=== PATIENT | female | born 1990 | race Caucasian/White ===

== ENCOUNTER 2020-03-23 22:56 | Emergency (ER) | payer SELFPAY ==
[2020-03-23 23:05] VITALS: BP 160/72; PULSE 78; RESP 18; TEMP 35.9; O2SAT 98; BMI 34.4
--- NOTE | 2020-03-23 23:10 | ED_ITS ---
HPI - Back Pain/Injury General: Chief Complaint: Back Pain/Injury Stated Complaint: back pain Time Seen by Provider: 03/23/20 23:04 History of Present Illness: HPI Narrative: Patient is a 29-year-old female who comes to the ED with back pain. Patient says lower back pain started about a month ago. She says that she has had to take care of her mother which involves a lot of lifting and transferring her mother since she cannot do those things on her own. Since taking care of her mom, her back pain started. Back pain is in the lower back. It has progressed and gotten more painful over the last month. Patient says that in the last 2 days she started getting pain and tingling sensation shooting down her right leg during certain movements and positions. She rates the pain currently an 8 out of 10. Patient denies any bladder or bowel incontinence, pelvic anesthesia. Associated symptoms: Deny abdominal pain, chills, dysuria, fatigue, fever(s), hematuria, nausea or vomiting Review of Systems Const: Denies: fever, chills or fatigue Eyes: Denies: change in vision or eye discomfort ENMT: Denies: throat pain, painful swallowing, nasal discharge or nasal congestion Card: Denies: chest pain, palpitations, edema, swelling of feet/ankles, shortness of breath on exertion or shortness of breath when lying down Resp: Denies: shortness of breath, productive cough or non-productive cough GI: Denies: abdominal pain, nausea, vomiting, diarrhea, constipation or blood in stool : Denies: flank pain, painful urination or blood in urine Musc: Reports: back pain; Denies: neck pain or extremity swelling Skin/Breast: Denies: rash or new lesion Neuro: Denies: headache, numbness in extremities or weakness in extremities PFS ED PFSH: Social History Smoking and tobacco status: never smoked Physical Exam Const: COMMON NORMALS: oriented x3 and alert GENERAL APPEARANCE: not comfortable (uncomfortable due to lower back pain.) HENMT: COMMON NORMALS: normocephalic HEAD & SCALP: normocephalic MOUTH: oral and palatal mucosa normal THROAT: posterior oropharynx normal and uvula midline Eye: COMMON NORMALS: PERRL PUPIL: Yes PERRL Neck/C-Spine: COMMON NORMALS: supple GENERAL: Yes normal visual inspection Resp: COMMON NORMALS: normal respiratory effort, no retractions, no use of accessory muscles and clear to auscultation bilaterally AUSCULTATION: clear to auscultation bilaterally Cardio: COMMON NORMALS: regular rate, regular rhythm, S1 normal heart sound, S2 normal heart sound, no gallops, no clicks, no murmurs and peripheral pulses 2+ throughout RATE: regular rate RHYTHM: regular rhythm HEART SOUNDS: S1 normal and S2 normal PERIPHERAL PULSES: pulses 2+ throughout GI: COMMON NORMALS: normal to inspection, nondistended, normoactive bowel sounds, soft to palpation, non-tender and no masses PALPATION: Yes soft : COMMON NORMALS: Yes no CVA tenderness BLADDER/KIDNEY EXAM: Yes no CVA tenderness Back/Pelvis: COMMON NORMALS: no CVA tenderness LUMBAR SPINE/LOWER BACK: Yes pain with ROM and Yes paraspinal muscle tenderness Extremity: COMMON NORMALS: normal to inspection and no pedal edema Neuro: COMMON NORMALS: oriented x3 and moves all extremities SENS ORIUM/ORIENTATION: Yes alert Skin: COMMON NORMALS: no rashes or lesions noted GENERAL SKIN EXAM: no rashes or lesions noted and dry skin Course Vital Signs: Vital signs: Vital Signs Temperature 96.6 F L 03/23/20 23:05 Pulse Rate 66 03/24/20 01:12 Respiratory Rate 18 03/24/20 01:12 Blood Pressure 97/71 03/24/20 01:12 Pulse Oximetry 98 03/24/20 01:12 MDM - Back Pain/Injury MDM Narrative: Medical decision making narrative: Patient is a 29-year-old female who comes to the ED with lower back pain and pain and tingling that radiates down right leg. Patient is recently been taking care of her mother which includes a lot of lifting. She says back pain started when she started taking care of her mother. Physical exam showed lower back tenderness and patient had pain radiating down right leg. While here in the ED patient was given Toradol, Norflex and prednisone. Patient was diagnosed with lumbar radiculopathy and given a prescription for muscle relaxer and prednisone. Patient told to follow-up with primary care physician in the next 5 to 7 days reevaluation. Patient understood and agreed with plan. Discharge Plan Discharge Patient Disposition: Home, Self-Care Clinical Impression: Lumbar radiculopathy Strain of lumbar region Qualifiers: Encounter type: initial encounter Qualified Code(s): S39.012A - Strain of muscle, fascia and tendon of lower back, initial encounter Condition: Stable Prescriptions: New Robaxin-750 750 mg tablet 750 mg PO Q8H Qty: 20 RF: 0 prednisone 20 mg tablet 20 mg PO TID 5 Days Qty: 15 RF: 0 No Action gabapentin 300 mg Capsule 300 mg PO TID RF: 0 albuterol sulfate 90 mcg/actuation Hfa Aerosol Inhaler 2 puff INHALATION DIRECTED RF: 0 Discharge Orders: Discharge Order (Routine); Ordered 03/24/20 Ordered By: James Murphy Discharge Diet: Regular Discharge Activity: Increase activity as tolerated Patient Instructions: Low Back Strain (ED), Lumbar Radiculopathy (ED) Activity Restrictions/Additional Instructions: Follow-up with your PCP within the next 7 to 10 days for reevaluation. Take full course of prednisone as prescribed. Take [id number] ibuprofen to help with pain and inflammation. I am also sending you home with a prescription for a muscle relaxer. Muscle relaxer can cause drowsiness so take at night before bed and use with caution during the day. Rest for the next 5 days and avoid any heavy lifting. Discharge Date/Time: 03/24/20 01:13 Coding Level of Care Code ED [employer] for Jamel Lynch Exam Comprehensive
[2020-03-24] MEDS: predniSONE 20 mg Tablet 60 MG PO (00:13)
[2020-03-24] MEDS: ketorolac 30 mg/mL INJ IM (00:14)
[2020-03-24] MEDS: orphenadrine 30 mg/mL Inj 2 mL 60 MG IM (00:14)
[2020-03-24] MEDS: HYDROcodone-acetaminophen 7.5-325 mg Tablet 1 TAB PO (01:01)
[2020-03-24 01:12] VITALS: BP 97/71; PULSE 66; RESP 18; O2SAT 98
== END 2020-03-24 01:13 | disposition home or self-care (01) ==
LOC: ER 03-24 00:20
PROVIDERS: Emergency Provider Physician Assistant
DX: M54.16 Radiculopathy, lumbar region (principal); S39.012A Strain of muscle, fascia and tendon of lower back, initial encounter; X50.9XXA Other and unspecified overexertion or strenuous movements or postures, initial encounter; Y93.F2 Activity, caregiving, lifting
CPT/HCPCS: 12345; 96372; 99281; 99283; J1885; J2360; J7512

== ENCOUNTER 2022-10-28 20:13 | Emergency (ER) | payer MEDICAID, SELFPAY ==
[2022-10-28 20:31] VITALS: BP 138/88; PULSE 79; RESP 16; TEMP 36.8; O2SAT 97; BMI 28.1
[2022-10-28 21:01] LABS: Urine Appearance Cloudy (CLEAR); Urine Color Yellow (Yellow)
[2022-10-28 21:02] LABS: Add Urine Culture? Yes; Add Urine Microscopic? YES; Bacteria Urine 3+ /hpf; Bilirubin Urine Neg (Negative); Blood Urine 3+ (Negative); Glucose Urine UA Norm (Normal); Ketones Urine Negative (Negative); Leukocyte Esterase Urine 2+ (Negative); Mucus Urine 1+ /hpf; Nitrate Urine Negative (Negative); Protein Urine 1+ (Negative); RBC Urine TOO NUMEROUS TO CNT /hpf (0-2); Urobilinogen Urine Norm (Negative); WBC Urine 80-100 /hpf (0-5); pH Urine 5 (5-7)
--- NOTE | 2022-10-28 21:05 | CTR_ITS ---
PROCEDURE INFORMATION: Exam: CT Abdomen And Pelvis Without Contrast Exam date and time: 10/28/2022 9:13 PM Age: 32 years old Clinical indication: Abdominal pain; Other: Cramping; Prior surgery; Surgery type: Gb. Appy. Hysterectomy. Patient HX: PT C/O RT flank pain and hematuria. ; Additional info: Right flank pain, TECHNIQUE: Imaging protocol: Computed tomography of the abdomen and pelvis without contrast. Axial, coronal and sagittal reformatted images were created and reviewed. Radiation optimization: All CT scans at this facility use at least one of these dose optimization techniques: automated exposure control; mA and/or kV adjustment per patient size (includes targeted exams where dose is matched to clinical indication); or iterative reconstruction. COMPARISON: No relevant prior studies available. RADIATION DOSE METRICS: Total DLP (mGy-cm): 700.89 FINDINGS: Lungs: Left lower lobe calcified granuloma. Liver: Unremarkable. Gallbladder and bile ducts: Status post cholecystectomy. No biliary ductal dilatation. Pancreas: Unremarkable. Spleen: Unremarkable. Adrenal glands: Normal. No mass. Kidneys and ureters: No mass. No radiodense calculi. No hydronephrosis. Stomach and bowel: No bowel wall thickening. No obstruction. No pneumatosis. Appendix: Status post appendectomy. Intraperitoneal space: No free fluid. No organized fluid collection. No free air. Vasculature: Unremarkable. No aneurysm. Lymph nodes: No pathologically enlarged lymph nodes. Urinary bladder: Unremarkable as visualized. Reproductive: Status post hysterectomy. Bones/joints: No acute osseous abnormality. Mild degenerative changes. Soft tissues: Unremarkable. CT/CT kidney stone [id number] IMPRESSION: 1. Limited noncontrast examination without CT evidence of acute intra-abdominal or pelvic pathology. 2. Additional findings, as above.
--- NOTE | 2022-10-28 21:07 | ED_ITS ---
HPI - Female Genitourinary General: Chief complaint: Urogenital-Female Stated complaint: cramps blood loss Time Seen by Provider: 10/28/22 21:05 History of Present Illness: 32-year-old female comes in today with complaints of right flank pain radiating to the inguinal area. Patient reports history of hysterectomy and gallbladder removal. Patient appears in moderate pain but nontoxic. Patient reports some nausea but no vomiting. Patient reports blood in the urine. Associated symptoms: Reports abdominal pain Review of Systems Const: Denies: fever(s) GI: Reports: abdominal pain : Reports: flank pain PFSH ED PFSH: Social History Smoking and tobacco status: never smoked Physical Exam Const: COMMON NORMALS: alert HENMT: COMMON NORMALS: normocephalic HEAD & SCALP: normocephalic Neck/C-Spine: COMMON NORMALS: full ROM Resp: COMMON NORMALS: normal respiratory effort Cardio: COMMON NORMALS: regular rate and regular rhythm RATE: regular rate RHYTHM: regular rhythm GI: COMMON NORMALS: Soft to palpation AUSCULTATION: Yes normoactive bowel sounds PALPATION: Yes Soft to palpation and Yes Tenderness to palpation p resent (GI) Details: RLQ Extremity: COMMON NORMALS: no pedal edema Neuro: SENSORIUM/ORIENTATION: Yes alert Skin: COMMON NORMALS: turgor normal GENERAL SKIN EXAM: turgor normal Course Vital Signs: Vital signs: Vital Signs Temperature 98.3 F 10/28/22 20:31 Pulse Rate 79 10/28/22 20:31 Respiratory Rate 16 10/28/22 20:31 Blood Pressure 138/88 10/28/22 20:31 Pulse Oximetry 97 10/28/22 20:31 Oxygen Delivery Me thod 10/28/22 20:31 MDM - Female Medical Decision Making 32-year-old female comes in today with complaints of right flank pain radiating into the right inguinal area. Patient thinks that she may have a kidney stone. Patient has a history of hysterectomy and gallbladder removal. On exam abdomen soft with some right lower quadrant abdominal pain. Vital signs are normal. Differential diagnosis includes renal calculi, appendicitis, surgical adhesions. CT noted no signs of of renal calculi or other acute surgical abdomen. Urinalysis had a large amount of red blood cells and white blood cells. Believe patient probably has urinary tract infection with a mild pyelonephritis. Patient was given a gram Rocephin and medication for pain. Patient was recommended to continue antibiotics by mouth follow-up with primary care in 3 to 5 days return to ER for worsening symptoms. Patient reported understanding. Lab Data 10/28/22 21:04 10/28/22 21:04 Radiology Impressions Abdomen/Pelvis CT 10/28/22 21:05 IMPRESSION: 1. Limited noncontrast examination without CT evidence of acute intra-abdominal or pelvic pathology. 2. Additional findings, as above. Laboratory Results WBC 8.3 10^3/uL (4.0-10.0) 10/28/22 21: RBC 4.57 10^6/uL (4.1-5.3) 10/28/22 21:04 Hgb 14.3 g/dL (11.5-15.3) 10/28/22 21: Hct 42.6 % (37.0-47.0) 10/28/22 21: MCV 93.2 fl (81-99) 10/28/22 21:04 MCH 31.3 pg (28.0-34.0) 10/28/22 21:04 MCHC 33.6 g/dL (30.0-36.0) 10/28/22 21:04 RDW 12.9 % (12.1-15.1) 10/28/22 21:04 Plt Count 230 10^3/cmm (130-400) 10/28/22 21:04 MPV 11.2 fL (7.4-10.4) H 10/28/22 21:04 Neut % (Auto) 69.8 % 10/28/22 21:04 Lymph % (Auto) 21.8 % 10/28/22 21:04 [place] % (Auto) 7.4 % 10/28/22 21: Eos % (Auto) 0.2 % 10/28/22 21: Baso % (Auto) 0.6 % 10/28/22 21:04 Neut # (Auto) 5.75 10^3/uL (1.8-7.7) 10/28/22 21: Lymph # (Auto) 1.8 10^3/uL (0.8-4.8) 10/28/22 21:04 [place] # (Auto) 0.6 10^3/uL (0.2-0.9) 10/28/22 21:04 Eos # (Auto) 0.0 10^3/uL (0.0-0.8) 10/28/22 21:04 Baso # (Auto) 0.1 10^3/uL (0.0-0.1) 10/28/22 21:04 Nucleated RBC % (auto) 0 % 10/28/22 21:04 Nucleated RBCs # 0.0 /100WBC 10/28/22 21:04 Sodium 139 mmol/L (136-145) 10/28/22 21:04 Potassium 3.9 mmol/L (3.5-5.1) 10/28/22 21:04 Chloride 105 mmol/L (98-107) 10/28/22 21:04 Carbon Dioxide 24 mmol/L (22-29) 10/28/22 21:04 Anion Gap 13.9 (5-19) 10/28/22 21:04 BUN 15 mg/dL (6-20) 10/28/22 21:04 Creatinine 0.6 mg/dL (0.5-0.9) 10/28/22 21:04 GFR Calculation 115.9 mL/min (90-130) 10/28/22 21:04 Glucose 98 mg/dL (65-115) 10/28/22 21:04 Calculated Osmolality 289 mOsm/kg (285-295) 10/28/22 21:04 Calcium 9.5 mg/dL (8.5-10.5) 10/28/22 21:04 Total Bilirubin 0.2 mg/dL (0.15-1.2) 10/28/22 21:04 AST 13 U/L (0-32) 10/28/22 21:04 ALT 7 U/L (0-33) 10/28/22 21:04 Alkaline Phosphatase 56 U/L (35-105) 10/28/22 21:04 Total Protein 7.5 g/dL (6.6-8.7) 10/28/22 21:04 Albumin 4.4 g/dL (3.5-5.2) 10/28/22 21:04 Globulin 3.1 g/dL (1.3-4.6) 10/28/22 21:04 Lipase 44 U/L (13-60) 10/28/22 21:04 Ser , Semi-Qnt 1.00 mIU/mL 10/28/22 21:04 Urine Color Yellow (Yellow) 10/28/22 20:38 Urine Appearance Cloudy (CLEAR) A 10/28/22 20:38 Urine pH 5 (5-7) 10/28/22 20:38 Ur Specific [place] 1.030 (1.005-1.030) 10/28/22 20:38 Urine Protein 1+ (Negative) H 10/28/22 20:38 Urine Glucose (UA) Norm (Normal) 10/28/22 20:38 Urine Ketones Negative (Negative) 10/28/22 20:38 Urine Blood 3+ (Negative) H 10/28/22 20:38 Urine Nitrate Negative (Negative) 10/28/22 20:38 Urine Bilirubin Neg (Negative) 10/28/22 20:38 Urine Urobilinogen Norm mg/dL (Negative) 10/28/22 20:38 Ur Leukocyte Esterase 2+ (Negative) H 10/28/22 20:38 Urine RBC Too numerous to cnt /hpf (0-2) H 10/28/22 20:38 Urine WBC 80-100 /hpf (0-5) H 10/28/22 20:38 Ur Squamous Epith Cells 5-10 /hpf (0-5) H 10/28/22 20:38 Amorphous Sediment Not Reportable 10/28/22 20:38 Urine Bacteria 3+ /hpf (NONE) H 10/28/22 20:38 Urine Mucus 1+ /hpf 10/28/22 20:38 Discharge Plan Discharge Patient Disposition: Home Clinical Impression: Pyelonephritis Condition: Stable Prescriptions: New cefdinir 300 mg capsule 300 mg PO BID 7 Days Qty: 14 0RF hydrocodone-acetaminophen 5-325 mg tablet 1 tab PO Q8H PRN (Reason: pain) Qty: 7 0RF No Action gabapentin 300 mg Capsule 300 mg PO TID albuterol sulfate 90 mcg/actuation Hfa Aerosol Inhaler 2 puff INHALATION DIRECTED Robaxin-750 750 mg tablet 750 mg PO Q8H Qty: 20 0RF Discharge Orders: Discharge ED (Routine); Ordered 10/28/22 Ordered By: Caden Campbell Discharge Diet: Usual diet Discharge Activity: Increase activity as tolerated Patient Instructions: Kidney Infection (ED), Opioid Safety Activity Restrictions/Additional Instructions: Drink plenty of fluids. Take antibiotics as directed. Use acetaminophen and ibuprofen to control pain. Use hydrocodone for severe pain. Follow-up with primary care as needed. Return to emergency department for worsening symptoms such as inability to hold fluids down, fever greater than 100.4, or new concerns. Coding Level of Care Code ED [employer] for Jamel Fwd Exam Comprehensive
[2022-10-28] MEDS: cefTRIAXone 1,000 MG in sodium chloride 0.9% (plus) 50 ML 100 MG IV (21:16)
[2022-10-28] MEDS: sodium chloride 0.9% 500 ML 999 ML IV (21:16)
[2022-10-28] MEDS: ondansetron 2 mg/ML SDV 2 mL 4 MG IVP (21:16)
[2022-10-28] MEDS: ketorolac 30 mg/mL INJ 15 MG IVP (21:16)
[2022-10-28 21:23] LABS: Basophils # 0.1 10^3/uL (0.0-0.1); Basophils % 0.6 %; Eosinophils % 0.2 %; Hematocrit 42.6 % (37.0-47.0); Hemoglobin 14.3 g/dL (11.5-15.3); Lymphocytes # 1.8 10^3/uL (0.8-4.8); Lymphocytes % 21.8 %; Mean Corpuscular HGB Conc 33.6 g/dL (30.0-36.0); Mean Corpuscular Hemoglobin 31.3 pg (28.0-34.0); Mean Corpuscular Volume 93.2 fl (81-99); Mean Platelet Volume 11.2 fL (7.4-10.4); Monocytes # 0.6 10^3/uL (0.2-0.9); Monocytes % 7.4 %; Neutrophils # 5.75 10^3/uL (1.8-7.7); Neutrophils % 69.8 %; Nucleated Red Blood Cells % 0 %; Platelet Count 230 10^3/cmm (130-400); Red Blood Count 4.57 10^6/uL (4.1-5.3); Red Cell Distribution Width 12.9 % (12.1-15.1); White Blood Count 8.3 10^3/uL (4.0-10.0)
[2022-10-28 21:54] LABS: Alanine Aminotransferase 7 U/L (0-33); Albumin Level 4.4 g/dL (3.5-5.2); Alkaline Phosphatase 56 U/L (35-105); Anion Gap 13.9 (5-19); Aspartate Amino Transferase 13 U/L (0-32); Blood Urea Nitrogen 15 mg/dL (6-20); Calcium 9.5 mg/dL (8.5-10.5); Carbon Dioxide 24 mmol/L (22-29); Chloride 105 mmol/L (98-107); Globulin 3.1 g/dL (1.3-4.6); Glomerular Filtration Rate 115.9 mL/min (90-130); Glucose 98 mg/dL (65-115); Lipase 44 U/L (13-60); Osmolality Calculated 289 mOsm/kg (285-295); Potassium 3.9 mmol/L (3.5-5.1); Sodium 139 mmol/L (136-145); Total Bilirubin 0.2 mg/dL (0.15-1.2); Total Protein 7.5 g/dL (6.6-8.7)
[2022-10-28] MEDS: morphine 4 mg/mL SDV 1 mL IVP (22:14)
[2022-10-28 22:19] VITALS: PULSE 83; RESP 18; O2SAT 98
== END 2022-10-28 22:20 | disposition home or self-care (01) ==
PROVIDERS: Emergency Medicine; Emergency Provider Nurse Practitioner Family
DX: N12 Tubulo-interstitial nephritis, not specified as acute or chronic (principal)
CPT/HCPCS: 74176; 80053; 81001; 83690; 84702; 85025; 87086; 96365; 96375; 99285; J0696; J1885; J2270; J2405; J7040

== ENCOUNTER 2022-11-19 21:03 | Emergency (ER) | payer MEDICAID, SELFPAY ==
[2022-11-19 21:08] VITALS: BP 107/64; PULSE 76; RESP 18; TEMP 36.8; O2SAT 99; BMI 29.0
--- NOTE | 2022-11-19 21:57 | XRR_ITS ---
PROCEDURE INFORMATION: Exam: XR Right Ankle Exam date and time: 11/19/2022 10:00 PM Age: 32 years old Clinical indication: Injury or trauma; Fall; Blunt trauma; Right; Patient HX: Patient was outside with dog and a cable lead and the cable became wrapped around ankle and she was pulled to the ground. C/O pain to ankle primarily to achilles. TECHNIQUE: Imaging protocol: Radiologic exam of the Right ankle. Views: 3 or more views. COMPARISON: No relevant prior studies available. FINDINGS: Bones/joints: No acute fracture or dislocation is noted. The skeletal structures seem age-appropriate. Small posterior calcaneal enthesophyte. Soft tissues: Unremarkable. XR/XR ankle RT min 3V* [id number] IMPRESSION: No acute findings.
--- NOTE | 2022-11-19 22:16 | W.ED.EXTPRO ---
HPI - Extremity Problem General: Chief complaint: Extremity Injury, Lower Stated complaint: right ankle pain Time Seen by Provider: 11/19/22 21:55 History of Present Illness: Patient comes in with right ankle pain. States that her dog's chain got wrapped around her right ankle while she was walking him and he took off dragging her. States that she is having pain over the anterior aspect of the right ankle as well as over the Achilles tendon. Associated symptoms: Deny chest pain, fever(s) or rash Review of Systems Const: Denies: fever(s) or body aches Eyes: Denies: change in vision or blurry vision ENMT: Denies: throat pain or odynophagia Card: Denies: chest pain or palpitations Resp: Denies: dyspnea or productive cough GI: Denies: abdominal pain, nausea or vomiting : Denies: flank pain or dysuria Musc: Denies: neck pain or back pain Skin/Breast: Denies: rash or pruritus Neuro: Denies: headache(s) or numbness in extremities Psych: Denies: anxiety or change in appetite Endo: Denies: polyuria or excessive sweating PFSH ED PFSH: Social History Smoking and tobacco status: never smoked Physical Exam Const: COMMON NORMALS: no acute distress, patient oriented x3, healthy appearing and alert HENMT: COMMON NORMALS: normocephalic and atraumatic HEAD & SCALP: normocephalic and atraumatic Eye: COMMON NORMALS: Equal, round and reactive pupils present and EOMs intact bilaterally PUPIL: Yes Equal, round and reactive pupils present Neck/C-Spine: COMMON NORMALS: full ROM and supple Resp: COMMON NORMALS: normal respiratory effort, No retractions and No use of accessory muscles Cardio: COMMON NORMALS: regular rate and regular rhythm RATE: regular rate RHYTHM: regular rhythm GI: COMMON NORMALS: Normal to inspection, nondistended, normoactive bowel sounds present, Soft to palpation and non-tender PALPATION: Yes Soft to palpation Back/Pelvis: COMMON NORMALS: thoracic and lumbar spine normal to inspection and no thoracic nor lumbar tenderness Extremity: OTHER: full range of motion of her right foot and ankle. She does have some swelling over the posterior aspect of the ankle as well as tenderness over the anterior talofibular ligament. Neuro: COMMON NORMALS: patient oriented x3 SENSORIUM/ORIENTATION: Yes alert Psych: COMMON NORMALS: mental status grossly normal and cooperative Skin: COMMON NORMALS: no rashes or lesions noted and no wounds GENERAL SKIN EXAM: no rashes or lesions noted Course Vital Signs: Vital signs: Vital Signs Temperature 98.2 F 11/19/22 21:08 Pulse Rate 76 11/19/22 21:08 Respiratory Rate 18 11/19/22 21:08 Blood Pressure 107/64 11/19/22 21:08 Pulse Oximetry 99 11/19/22 21:08 Oxygen Delivery Me thod 11/19/22 21:08 MDM - Extremity (Nontraumatic) Medical Decision Making Patient comes in with right ankle pain. States that her dog's chain got wrapped around her right ankle while she was walking him and he took off dragging her. States that she is having pain over the anterior aspect of the right ankle as well as over the Achilles tendon. On physical exam she has full range of motion of her foot and ankle. She does have some swelling over the posterior aspect of the ankle as well as tenderness over the anterior talofibular ligament. X-ray done while in the waiting room was unremarkable for acute fracture. Will ice, encourage anti-inflammatories, and discharged with precautions to return for worsening or changing symptoms. Lab Data Radiology Impressions Ankle X-Ray 11/19/22 21:57 IMPRESSION: No acute findings. Discharge Plan Discharge Patient Disposition: Home Clinical Impression: Ankle sprain and strain Condition: Stable Prescriptions: No Action gabapentin 300 mg Capsule 300 mg PO TID albuterol sulfate 90 mcg/actuation Hfa Aerosol Inhaler 2 puff INHALATION DIRECTED Robaxin-750 750 mg tablet 750 mg PO Q8H Qty: 20 0RF hydrocodone-acetaminophen 5-325 mg tablet 1 tab PO Q8H PRN (Reason: pain) Qty: 7 0RF Discharge Orders: Discharge ED (Routine); Ordered 11/19/22 Ordered By: Te Sheridan Patient Instructions: Ankle Sprain (ED) Stand Alone Forms: Work/School Release Coding Level of Care Code ED [employer] Professor for Connieg Fwd Exam Comprehensive
== END 2022-11-19 22:37 | disposition home or self-care (01) ==
PROVIDERS: Emergency Provider Emergency Medicine
DX: S93.401A Sprain of unspecified ligament of right ankle, initial encounter (principal); S96.911A Strain of unspecified muscle and tendon at ankle and foot level, right foot, initial encounter; W01.0XXA Fall on same level from slipping, tripping and stumbling without subsequent striking against object, initial encounter
CPT/HCPCS: 73610; 99283

== ENCOUNTER 2023-01-24 16:18 | Emergency (ER) | payer OTHER, SELFPAY ==
--- NOTE | 2023-01-24 16:19 | XRR_ITS ---
PROCEDURE INFORMATION: Exam: XR Chest Exam date and time: 01/24/2023 4:37 PM Age: 32 years old Clinical indication: Shortness of breath and other: Asthma; Additional info: Asthma, SOB TECHNIQUE: Imaging protocol: Radiologic exam of the chest. Views: 2 views. COMPARISON: CT kidney stone [id number] 10/28/2022 9:13 PM FINDINGS: Lungs: Unremarkable. No consolidation. Pleural spaces: Unremarkable. No pleural effusion. No pneumothorax. Heart/Mediastinum: Unremarkable. No cardiomegaly. Bones/joints: Unremarkable. XR/XR chest 2V* [id number] IMPRESSION: No acute findings.
[2023-01-24 16:32] VITALS: BP 154/91; PULSE 84; RESP 14; TEMP 37.2; O2SAT 99; BMI 28.6
--- NOTE | 2023-01-24 16:41 | ED_ITS ---
Documented by User: Kathy Kumari PA-C 01/24/23 16:49 HPI - SOB/Dyspnea General: Chief Complaint: Shortness of Breath/Dyspnea Stated Complaint: asthma/sob Time Seen by Provider: 01/24/23 16:39 Source: patient Mode of arrival: ambulatory Limitations: no limitations History of Present Illness: HPI Narrative: 2-year-old female presents to the ER today for possible asthma attack. Patient reports for the last 3 days she has had a cough. She reports this morning at [employer] she went into a full-blown asthma attack. Patient reports she tried using her ProAir inhaler however found that it was and it did not seem to work. Patient reports someone else at [employer] had an inhaler that she used and she was able to calm herself down to where she could breathe. Patient reports her cough is productive. She denies any fever or chills. Patient d enies any congestion but reports clear runny nose. Patient reports usually asthma is induced by seasonal allergies. She is not taking any type of daily antihistamine or nasal spray at this time. Patient reports she is currently on a Medrol Dosepak for a back injury. She thought maybe the steroid would help her asthma however it has not. Patient does not use a nebulizer at home. Patient denies any known sick contacts. Review of Systems General: Reports: 10 or more systems reviewed and unremarkable except in HPI and below PFSH ED PFSH: Social History Smoking and tobacco status: never smoked Physical Exam Const: COMMON NORMALS: no acute distress, average body habitus, patient oriented x3, no limitations, healthy appearing, alert and well nourished HENMT: COMMON NORMALS: normocephalic, atraumatic, external ears normal, TM's normal bilaterally, Normal nasal mucous membranes and turbinates present and moist oral mucous membranes HEAD & SCALP: normocephalic and atraumatic NOSE: Normal nasal mucous membranes and turbinates present EXTERNAL EAR: Yes external ears normal TYMPANIC MEMBRANE: TM's normal bilaterally Neck/C-Spine: COMMON NORMALS: full ROM and no lymphadenopathy Resp: COMMON NORMALS: normal respiratory effort and No retractions EFFORT & INSPECTION: Yes able to speak in complete sentences AUSCULTATION: wheezes and other (Decreased air movement left lung worse on the right in the lower lobes.) Cardio: COMMON NORMALS: regular rate, regular rhythm and No murmurs present (Cardio) RATE: regular rate RHYTHM: regular rhythm GI: COMMON NORMALS: Normal to inspection, nondistended, normoactive bowel sounds present, Soft to palpation and non-tender PALPATION: Yes Soft to palpation Extremity: COMMON NORMALS: normal to inspection, full ROM and no pedal edema Neuro: COMMON NORMALS: patient oriented x3 SENSORIUM/ORIENTATION: Yes alert Psych: COMMON NORMALS: mental status grossly normal, Normal thought process present and cooperative THOUGHT PROCESS: Normal thought process present Skin: COMMON NORMALS: no rashes or lesions noted and no wounds GENERAL SKIN EXAM: no rashes or lesions noted Course ED course: Presents to the ER today with an asthma exacerbation. She reports cough x3 days and then an asthma exacerbation that began this morning. She reports the attack lasted several minutes until she was able to find an inhaler from someone at [employer]. She reports she still feels very tight in the chest. Family is concerned that despite being on steroids for another injury, her asthma is still flaring up. Patient is not taking a daily antihistamine at this time. Denies any known sick contacts. We will get a chest x-ray, do an albuterol nebulized treatment and also basic labs. Patient is in no acute distress at this time. Vital Signs: Vital signs: Vital Signs Temperature 99.0 F 01/24/23 16:32 Pulse Rate 84 01/24/23 18:21 Respiratory Rate 18 01/24/23 17:00 Blood Pressure 135/85 01/24/23 18:21 Pulse Oximetry 97 01/24/23 18:21 Oxygen Delivery Me thod 01/24/23 17:00 MDM - SOB/Dyspnea Lab Data 01/24/23 17:04 01/24/23 17:04 Labs/Radiology: Radiology Impressions Chest X-Ray 01/24/23 16:19 IMPRESSION: No acute findings. Laboratory Results WBC 3.2 10^3/uL (4.0-10.0) L 01/24/23 17:04 RBC 4.84 10^6/uL (4.1-5.3) 01/24/23 17:04 Hgb 14.5 g/dL (11.5-15.3) 01/24/23 17:04 Hct 45.3 % (37.0-47.0) 01/24/23 17:04 MCV 93.6 fl (81-99) 01/24/23 17:04 MCH 30.0 pg (28.0-34.0) 01/24/23 17:04 MCHC 32.0 g/dL (30.0-36.0) 01/24/23 17:04 RDW 12.8 % (12.1-15.1) 01/24/23 17:04 Plt Count 184 10^3/cmm (130-400) 01/24/23 17:04 MPV 11.2 fL (7.4-10.4) H 01/24/23 17:04 Neut % (Auto) 64.4 % 01/24/23 17:04 Lymph % (Auto) 29.1 % 01/24/23 17:04 [place] % (Auto) 5.6 % 01/24/23 17:04 Eos % (Auto) 0.3 % 01/24/23 17:04 Baso % (Auto) 0.6 % 01/24/23 17:04 Neut # (Auto) 2.08 10^3/uL (1.8-7.7) 01/24/23 17:04 Lymph # (Auto) 0.9 10^3/uL (0.8-4.8) 01/24/23 17:04 [place] # (Auto) 0.2 10^3/uL (0.2-0.9) 01/24/23 17:04 Eos # (Auto) 0.0 10^3/uL (0.0-0.8) 01/24/23 17:04 Baso # (Auto) 0.0 10^3/uL (0.0-0.1) 01/24/23 17:04 Nucleated RBC % (auto) 0 % 01/24/23 17:04 Nucleated RBCs # 0.0 /100WBC 01/24/23 17:04 Sodium 139 mmol/L (136-145) 01/24/23 17:04 Potassium 3.5 mmol/L (3.5-5.1) 01/24/23 17:04 Chloride 102 mmol/L (98-107) 01/24/23 17:04 Carbon Dioxide 23 mmol/L (22-29) 01/24/23 17:04 Anion Gap 17.5 (5-19) 01/24/23 17:04 BUN 12 mg/dL (6-20) 01/24/23 17:04 Creatinine 0.6 mg/dL (0.5-0.9) 01/24/23 17:04 GFR Calculation 115.9 mL/min (90-130) 01/24/23 17:04 Glucose 99 mg/dL (65-115) 01/24/23 17:04 Calculated Osmolality 288 mOsm/kg (285-295) 01/24/23 17:04 Calcium 8.9 mg/dL (8.5-10.5) 01/24/23 17:04 Critical Care Time Critical Care Time: Critical Care Time: No Discharge Plan Discharge Patient Disposition: Home Clinical Impression: Asthma with exacerbation Qualifiers: Asthma severity: mild Asthma persistence: intermittent Qualified Code(s): J45.21 - Mild intermittent asthma with (acute) exacerbation Condition: Stable Prescriptions: New albuterol sulfate 90 mcg/actuation HFA aerosol inhaler 2 inh inhalation Q6H PRN (Reason: shortness of breath or wheezing) Qty: 8.5 0RF 24Hour Allergy 10 mg tablet 10 mg PO DAILY PRN (Reason: allergy symptoms) Qty: 30 0RF No Action gabapentin 300 mg Capsule 300 mg PO TID albuterol sulfate 90 mcg/actuation Hfa Aerosol Inhaler 2 puff INHALATION DIRECTED Robaxin-750 750 mg tablet 750 mg PO Q8H Qty: 20 0RF hydrocodone-acetaminophen 5-325 mg tablet 1 tab PO Q8H PRN (Reason: pain) Qty: 7 0RF Discharge Orders: Discharge ED (Routine); Ordered 01/24/23 Ordered By: James Murphy Referrals: Fiordaliza Valadez MD [Primary Care Provider] - Discharge Diet: Regular Discharge Activity: Increase activity as tolerated Patient Instructions: Asthma (ED) Activity Restrictions/Additional Instructions: Follow-up with medical provider as directed in the next 5 to 7 days for reevaluation. Take medications as prescribed. Return to the ER or your medical provider if condition worsens. Please read and understand discharge instructions. Thank you for choosing [facility] for your healthcare needs today. Please realize this is an emergency room and that we are providing you with a medical screening exam and this may not be complete and all inclusive of all the testing and or work up that you may need to determine your ailment or severity of your illness. It is very important that you follow up as instructed or that you return to the Emergency Department should you have concerns or if your condition changes or worsens in any way. Sign Out Sign Out Data: Patient Sign Out occurred on 01/24/23 at 17:02. Patient's care was discussed, and care was transferred from Kathy Kumari PA-C to TOOTIE Enciso. Sign Out Comment: Waiting for xray results, labs and nebulizer tx Last updated by Kathy Kumari PA-C at 01/24/23 16:50 Coding Level of Care Code ED Garage Door Opener Installer for Chg Fwd Documented by User: TOOTIE Enciso 01/25/23 00:01 HPI - SOB/Dyspnea General: Chief Complaint: Shortness of Breath/Dyspnea Stated Complaint: asthma/sob Time Seen by Provider: 01/24/23 16:39 History of Present Illness: HPI Narrative: 32-year-old female presents to the ER today for possible asthma attack. Patient reports for the last 3 days she has had a cough. She reports this morning at [employer] she went into a full-blown asthma attack. Patient reports she tried using her ProAir inhaler however found that it was and it did not seem to work. Patient reports someone else at [employer] had an inhaler that she used and she was able to calm herself down to where she could breathe. Patient reports her cough is productive. She denies any fever or chills. Patient denies any congestion but reports clear runny nose. Patient reports usually asthma is induced by seasonal allergies. She is not taking any type of daily antihistamine or nasal spray at this time. Patient reports she is currently on a Medrol Dosepak for a back injury. She thought maybe the steroid would help her asthma however it has not. Patient does not use a nebulizer at home. Patient denies any known sick contacts. [facility] ED PFSH: Social History Smoking and tobacco status: never smoked Course Vital Signs: Vital signs: Vital Signs Temperature 99.0 F 01/24/23 16:32 Pulse Rate 84 01/24/23 18:21 Respiratory Rate 18 01/24/23 17:00 Blood Pressure 135/85 01/24/23 18:21 Pulse Oximetry 97 01/24/23 18:21 Oxygen Delivery Me thod 01/24/23 17:00 MDM - SOB/Dyspnea Medical Decision Making 32-year-old female presents to the ER today for possible asthma attack. Patient reports for the last 3 days she has had a cough. She reports this morning at [employer] she went into a full-blown asthma attack. Patient reports she tried using her ProAir inhaler however found that it was and it did not seem to work. Patient reports someone else at [employer] had an inhaler that she used and she was able to calm herself down to where she could breathe. Patient reports her cough is productive. She denies any fever or chills. Vitals are stable. Patient does not appear in any respiratory distress. She does have some wheezing upon auscultation and left and right lungs. Rest of exam is benign. Labs are unremarkable. Chest x-ray shows no acute findings. Patient was given an albuterol nebulizer breathing treatment here in the ED. She was stable for discharge home and diagnosed with asthma with exacerbation. She was discharged home with a prescription for albuterol inhaler and Zyrtec. She was told to continue taking her previously prescribed prednisone. Strict return to ED precautions given. Follow-up with PCP in the next week for reevaluation. Patient understood and agreed with plan. Lab Data I reviewed the patient's lab results. 01/24/23 17:04 01/24/23 17:04 Labs/Radiology: Radiology Impressions Chest X-Ray 01/24/23 16:19 IMPRESSION: No acute findings. Laboratory Results WBC 3.2 10^3/uL (4.0-10.0) L 01/24/23 17:04 RBC 4.84 10^6/uL (4.1-5.3) 01/24/23 17:04 Hgb 14.5 g/dL (11.5-15.3) 01/24/23 17:04 Hct 45.3 % (37.0-47.0) 01/24/23 17:04 MCV 93.6 fl (81-99) 01/24/23 17:04 MCH 30.0 pg (28.0-34.0) 01/24/23 17:04 MCHC 32.0 g/dL (30.0-36.0) 01/24/23 17:04 RDW 12.8 % (12.1-15.1) 01/24/23 17:04 Plt Count 184 10^3/cmm (130-400) 01/24/23 17:04 MPV 11.2 fL (7.4-10.4) H 01/24/23 17:04 Neut % (Auto) 64.4 % 01/24/23 17:04 Lymph % (Auto) 29.1 % 01/24/23 17:04 [place] % (Auto) 5.6 % 01/24/23 17:04 Eos % (Auto) 0.3 % 01/24/23 17:04 Baso % (Auto) 0.6 % 01/24/23 17:04 Neut # (Auto) 2.08 10^3/uL (1.8-7.7) 01/24/23 17:04 Lymph # (Auto) 0.9 10^3/uL (0.8-4.8) 01/24/23 17:04 [place] # (Auto) 0.2 10^3/uL (0.2-0.9) 01/24/23 17:04 Eos # (Auto) 0.0 10^3/uL (0.0-0.8) 01/24/23 17:04 Baso # (Auto) 0.0 10^3/uL (0.0-0.1) 01/24/23 17:04 Nucleated RBC % (auto) 0 % 01/24/23 17:04 Nucleated RBCs # 0.0 /100WBC 01/24/23 17:04 Sodium 139 mmol/L (136-145) 01/24/23 17:04 Potassium 3.5 mmol/L (3.5-5.1) 01/24/23 17:04 Chloride 102 mmol/L (98-107) 01/24/23 17:04 Carbon Dioxide 23 mmol/L (22-29) 01/24/23 17:04 Anion Gap 17.5 (5-19) 01/24/23 17:04 BUN 12 mg/dL (6-20) 01/24/23 17:04 Creatinine 0.6 mg/dL (0.5-0.9) 01/24/23 17:04 GFR Calculation 115.9 mL/min (90-130) 01/24/23 17:04 Glucose 99 mg/dL (65-115) 01/24/23 17:04 Calculated Osmolality 288 mOsm/kg (285-295) 01/24/23 17:04 Calcium 8.9 mg/dL (8.5-10.5) 01/24/23 17:04 Discharge Plan Discharge Patient Disposition: Home Clinical Impression: Asthma with exacerbation Qualifiers: Asthma severity: mild Asthma persistence: intermittent Qualified Code(s): J45.21 - Mild intermittent asthma with (acute) exacerbation Condition: Stable Prescriptions: New albuterol sulfate 90 mcg/actuation HFA aerosol inhaler 2 inh inhalation Q6H PRN (Reason: shortness of breath or wheezing) Qty: 8.5 0RF 24Hour Allergy 10 mg tablet 10 mg PO DAILY PRN (Reason: allergy symptoms) Qty: 30 0RF No Action gabapentin 300 mg Capsule 300 mg PO TID albuterol sulfate 90 mcg/actuation Hfa Aerosol Inhaler 2 puff INHALATION DIRECTED Robaxin-750 750 mg tablet 750 mg PO Q8H Qty: 20 0RF hydrocodone-acetaminophen 5-325 mg tablet 1 tab PO Q8H PRN (Reason: pain) Qty: 7 0RF Discharge Orders: Discharge ED (Routine); Ordered 01/24/23 Ordered By: James Murphy Referrals: Fiordaliza Valadez MD [Primary Care Provider] - Discharge Diet: Regular Discharge Activity: Increase activity as tolerated Patient Instructions: Asthma (ED) Activity Restrictions/Additional Instructions: Follow-up with medical provider as directed in the next 5 to 7 days for reevaluation. Take medications as prescribed. Return to the ER or your medical provider if condition worsens. Please read and understand discharge instructions. Thank you for choosing [facility] for your healthcare needs today. Please realize this is an emergency room and that we are providing you with a medical screening exam and this may not be complete and all inclusive of all the testing and or work up that you may need to determine your ailment or severity of your illness. It is very important that you follow up as instructed or that you return to the Emergency Department should you have concerns or if your c ondition changes or worsens in any way. Sign Out Sign Out Data: Patient Sign Out occurred on 01/24/23 at 17:02. Patient's care was discussed, and care was transferred from Kathy Kumari PA-C to TOOTIE Enciso. Sign Out Comment: Waiting for xray results, labs and nebulizer tx Last updated by Kathy Kumari PA-C at 01/24/23 16:50 Coding Level of Care Code ED Garage Door Opener Installer for Jamel Lynch
[2023-01-24] MEDS: albuterol 2.5 mg/3 mL Neb NEBULIZER (16:51)
[2023-01-24 16:52] VITALS: PULSE 77; RESP 18; O2SAT 98
[2023-01-24 16:58] VITALS: PULSE 90
[2023-01-24 17:00] VITALS: BP 145/57; PULSE 90; RESP 18; O2SAT 96
[2023-01-24 17:14] LABS: Basophils % 0.6 %; Eosinophils % 0.3 %; Hematocrit 45.3 % (37.0-47.0); Hemoglobin 14.5 g/dL (11.5-15.3); Lymphocytes # 0.9 10^3/uL (0.8-4.8); Lymphocytes % 29.1 %; Mean Corpuscular Volume 93.6 fl (81-99); Mean Platelet Volume 11.2 fL (7.4-10.4); Monocytes # 0.2 10^3/uL (0.2-0.9); Monocytes % 5.6 %; Neutrophils # 2.08 10^3/uL (1.8-7.7); Neutrophils % 64.4 %; Nucleated Red Blood Cells % 0 %; Platelet Count 184 10^3/cmm (130-400); Red Blood Count 4.84 10^6/uL (4.1-5.3); Red Cell Distribution Width 12.8 % (12.1-15.1); White Blood Count 3.2 10^3/uL (4.0-10.0)
[2023-01-24 17:37] LABS: Anion Gap 17.5 (5-19); Blood Urea Nitrogen 12 mg/dL (6-20); Calcium 8.9 mg/dL (8.5-10.5); Carbon Dioxide 23 mmol/L (22-29); Chloride 102 mmol/L (98-107); Glomerular Filtration Rate 115.9 mL/min (90-130); Glucose 99 mg/dL (65-115); Osmolality Calculated 288 mOsm/kg (285-295); Potassium 3.5 mmol/L (3.5-5.1); Sodium 139 mmol/L (136-145)
[2023-01-24 17:42] LABS: Slide Review Slide Review Perform
[2023-01-24 18:21] VITALS: BP 135/85; PULSE 84; O2SAT 97
== END 2023-01-24 18:22 | disposition home or self-care (01) ==
PROVIDERS: Physician Assistant; Emergency Provider Physician Assistant; PCP Family Medicine
DX: J45.21 Mild intermittent asthma with (acute) exacerbation (principal)
CPT/HCPCS: 71046; 80048; 85025; 94640; 99284; J7613

== ENCOUNTER 2023-02-05 21:02 | Emergency (ER) | payer OTHER, SELFPAY ==
[2023-02-05 21:06] VITALS: BP 123/83; PULSE 88; RESP 20; TEMP 36.5; O2SAT 100; BMI 29.2
--- NOTE | 2023-02-05 21:06 | XRR_ITS ---
PROCEDURE INFORMATION: Exam: XR Chest Exam date and time: 02/05/2023 9:16 PM Age: 32 years old Clinical indication: Pain; Chest pressure; Additional info: Chest pain TECHNIQUE: Imaging protocol: Radiologic exam of the chest. Views: 1 view. COMPARISON: CR (CHEST, ) 01/24/2023 4:37 PM FINDINGS: Lungs: Unremarkable. No consolidation. Pleural spaces: Unremarkable. No pleural effusion. No pneumothorax. Heart/Mediastinum: Unremarkable. No cardiomegaly. Bones/joints: Unremarkable. XR/XR chest 1V portable [id number] IMPRESSION: No acute findings.
--- NOTE | 2023-02-05 21:09 | ECG_ITS ---
[facility] Test Date: 2023-02-05 Pat Name: Teresa Penn Department: Room: Gender: Female Blogs Manager: : 1990 Requested By: Caden Rolon Order Number: [id number] Bekah MD: DINH YIN Measurements Intervals Devers Rate: 91 P: 76 MS: 144 QRS: 52 QRSD: 83 T: 49 QT: 303 QTc: 373 Interpretive Statements SINUS RHYTHM WITH SINUS ARRHYTHMIA POSSIBLE LEFT ATRIAL ENLARGEMENT [-0.1mV P-WAVE IN V1/V2] NONSPECIFIC T-WAVE ABNORMALITY INTERPRETATION BASED ON A DEFAULT AGE OF 40 YEARS No previous ECG available for comparison Electronically Signed On 02-06-2023 23:37:19 CDT by DINH YIN [email or web address] Solutionshock[id number] f
[2023-02-05 22:14] LABS: Basophils # 0.1 10^3/uL (0.0-0.1); Basophils % 0.6 %; Eosinophils % 0.2 %; Hematocrit 46.4 % (37.0-47.0); Lymphocytes # 1.3 10^3/uL (0.8-4.8); Lymphocytes % 9.9 %; Mean Corpuscular HGB Conc 32.3 g/dL (30.0-36.0); Mean Corpuscular Hemoglobin 30.7 pg (28.0-34.0); Mean Corpuscular Volume 94.9 fl (81-99); Mean Platelet Volume 11.1 fL (7.4-10.4); Monocytes # 0.8 10^3/uL (0.2-0.9); Monocytes % 6.2 %; Neutrophils % 82.6 %; Nucleated Red Blood Cells % 0 %; Platelet Count 250 10^3/cmm (130-400); Red Blood Count 4.89 10^6/uL (4.1-5.3); Red Cell Distribution Width 12.7 % (12.1-15.1); White Blood Count 12.8 10^3/uL (4.0-10.0)
[2023-02-05 22:28] LABS: HCG, Serum Qual Negative (Negative)
[2023-02-05] MEDS: LORazepam 2 mg/mL INJ 1 mL 1 MG IVP (22:32)
[2023-02-05 22:43] LABS: Troponin(5th) Baseline 6 ng/L (0-10)
[2023-02-05 22:50] VITALS: BP 133/81; PULSE 82; RESP 16; O2SAT 98
[2023-02-05 22:52] LABS: Alanine Aminotransferase 7 U/L (0-33); Albumin Level 4.8 g/dL (3.5-5.2); Alkaline Phosphatase 72 U/L (35-105); Anion Gap 14.9 (5-19); Aspartate Amino Transferase 11 U/L (0-32); Blood Urea Nitrogen 10 mg/dL (6-20); Calcium 9.3 mg/dL (8.5-10.5); Carbon Dioxide 28 mmol/L (22-29); Chloride 99 mmol/L (98-107); Globulin 3.1 g/dL (1.3-4.6); Glucose 119 mg/dL (65-115); NT Pro B Type Natriuretic Pept 159 pg/mL (0-125); Osmolality Calculated 286 mOsm/kg (285-295); Potassium 3.9 mmol/L (3.5-5.1); Sodium 138 mmol/L (136-145); Total Bilirubin 0.2 mg/dL (0.15-1.2); Total Protein 7.9 g/dL (6.6-8.7)
--- NOTE | 2023-02-05 22:56 | PC.NURSE ---
Pt presents to ED c/o chest pain that started around 1600 today. Chest pain is demonstrated to be in the left chest near the sternal border. Pt states that she experienced emotionally stressing news regarding marriage right before chest pain began. Pt smoked marijuana around 1800 to relieve pain but it did not work. Pt has medical marijuana card. Aspirin was also taken but did not help. Pt resting in bed.
[2023-02-05 23:02] LABS: D Dimer 0.42 ug/mIFEU (0-0.59)
[2023-02-05 23:16] VITALS: BP 126/72; PULSE 78; RESP 16; O2SAT 99
--- NOTE | 2023-02-05 23:17 | ED_ITS ---
HPI - Chest Pain General: Chief Complaint: Chest Pain Stated Complaint: Chest pain, left arm pain Time Seen by Provider: 02/05/23 22:09 History of Present Illness: 32-year-old female with no prior history of coronary disease. She does have a history of asthma. She presents with chest discomfort radiating to her left arm. She notes that she found out her had cheated on her early in the evening, was already experiencing some chest discomfort prior to that. She believes this may be anxiety, but wanted to make sure. MD complaint: chest pain Pertinent past history: asthma Onset (ago): hour(s) Pain location: substernal and left chest Pain radiation: left arm Severity: moderate Associated symptoms: Reports dyspnea; Deny abdominal pain, diaphoresis, fever(s), leg edema, nausea, palpitations, syncope or vomiting Treatment prior to arrival: none Review of Systems Const: Denies: fever(s) or diaphoresis ENMT: Denies: throat pain Card: Reports: chest pain; Denies: palpitations or syncope Resp: Reports: dyspnea; Denies: productive cough or non-productive cough GI: Denies: abdominal pain, nausea or vomiting PFSH ED PFSH: Social History Smoking and tobacco status: never smoked Physical Exam Const: COMMON NORMALS: no acute distress GENERAL APPEARANCE: cooperative and anxious; not ill appearing and not frail appearing HENMT: COMMON NORMALS: normocephalic, atraumatic and Normal external nose present HEAD & SCALP: normocephalic and atraumatic FACE & SINUS: normal facial exam and face symmetric NOSE: Normal external nose present Eye: COMMON NORMALS: Equal, round and reactive pupils present and EOMs intact bilaterally PUPIL: Yes Equal, round and reactive pupils present Neck/C-Spine: GENERAL: Yes trachea midline Chest: CHEST: Yes Symmetrical chest wall rise Resp: COMMON NORMALS: normal respiratory effort, No retractions, No use of accessory muscles and clear to auscultation bilaterally AUSCULTATION: clear to auscultation bilaterally Cardio: COMMON NORMALS: regular rate and regular rhythm RATE: regular rate RHYTHM: regular rhythm GI: COMMON NORMALS: Normal to inspection, nondistended, normoactive bowel sounds present Extremity: COMMON NORMALS: no pedal edema Neuro: HAZEL COMA SCALE: document GCS findings Hazel coma scale eye opening: Spontaneous Hazel coma scale verbal response: Orientated [place] coma scale motor response: Obey commands [place] coma scale total score: 15 SENSORY EXAM: Yes extremities (intact) Psych: COMMON NORMALS: speech normal SPEECH: Yes normal speech Skin: COMMON NORMALS: no rashes or lesions noted GENERAL SKIN EXAM: no rashes or lesions noted Course Vital Signs: Vital signs: Vital Signs Temperature 97.7 F 02/05/23 21:06 Pulse Rate 89 02/06/23 00:01 Respiratory Rate 18 02/06/23 00:01 Blood Pressure 103/79 02/06/23 00:01 Pulse Oximetry 99 02/06/23 00:01 Oxygen Delivery Me thod 02/05/23 22:50 MDM - Chest Pain Medical Decision Making Patient is anxious on exam. She is not wheezing. She is not having increased work of breathing. Her white blood cell count is 12.8. Other laboratory including troponin is benign. Her D-dimer is 0.42. She has no signs of DVT. Her troponin is 6 her BNP is minimally elevated over normal, but not clinically significantly elevated. Her chest x-ray shows no acute findings. EKG shows a sinus rhythm and normal axis normal intervals. There is a slight sinus arrhythmia no acute ST-T wave changes. She will be allowed home. Lab Data 02/05/23 22:06 02/05/23 22:06 Radiology Impressions Chest X-Ray 02/05/23 21:06 IMPRESSION: No acute findings. Laboratory Results WBC 12.8 10^3/uL (4.0-10.0) H 02/05/23 22:06 RBC 4.89 10^6/uL (4.1-5.3) 02/05/23 22:06 Hgb 15.0 g/dL (11.5-15.3) 02/05/23 22:06 Hct 46.4 % (37.0-47.0) 02/05/23 22:06 MCV 94.9 fl (81-99) 02/05/23 22:06 MCH 30.7 pg (28.0-34.0) 02/05/23 22:06 MCHC 32.3 g/dL (30.0-36.0) 02/05/23 22:06 RDW 12.7 % (12.1-15.1) 02/05/23 22:06 Plt Count 250 10^3/cmm (130-400) 02/05/23 22:06 MPV 11.1 fL (7.4-10.4) H 02/05/23 22:06 Neut % (Auto) 82.6 % 02/05/23 22:06 Lymph % (Auto) 9.9 % 02/05/23 22:06 [place] % (Auto) 6.2 % 02/05/23 22:06 Eos % (Auto) 0.2 % 02/05/23 22:06 Baso % (Auto) 0.6 % 02/05/23 22:06 Neut # (Auto) 10.60 10^3/uL (1.8-7.7) H 02/05/23 22:06 Lymph # (Auto) 1.3 10^3/uL (0.8-4.8) 02/05/23 22:06 [place] # (Auto) 0.8 10^3/uL (0.2-0.9) 02/05/23 22:06 Eos # (Auto) 0.0 10^3/uL (0.0-0.8) 02/05/23 22:06 Baso # (Auto) 0.1 10^3/uL (0.0-0.1) 02/05/23 22:06 Nucleated RBC % (auto) 0 % 02/05/23 22:06 Nucleated RBCs # 0.0 /100WBC 02/05/23 22:06 D-Dimer 0.42 ug/mIFEU (0-0.59) 02/05/23 22:06 Sodium 138 mmol/L (136-145) 02/05/23 22:06 Potassium 3.9 mmol/L (3.5-5.1) 02/05/23 22:06 Chloride 99 mmol/L (98-107) 02/05/23 22:06 Carbon Dioxide 28 mmol/L (22-29) 02/05/23 22:06 Anion Gap 14.9 (5-19) 02/05/23 22:06 BUN 10 mg/dL (6-20) 02/05/23 22:06 Creatinine 0.5 mg/dL (0.5-0.9) 02/05/23 22:06 GFR Calculation 143.0 mL/min (90-130) H 02/05/23 22:06 Glucose 119 mg/dL (65-115) H 02/05/23 22:06 Calculated Osmolality 286 mOsm/kg (285-295) 02/05/23 22:06 Calcium 9.3 mg/dL (8.5-10.5) 02/05/23 22:06 Total Bilirubin 0.2 mg/dL (0.15-1.2) 02/05/23 22:06 AST 11 U/L (0-32) 02/05/23 22:06 ALT 7 U/L (0-33) 02/05/23 22:06 Alkaline Phosphatase 72 U/L (35-105) 02/05/23 22:06 Troponin T Baseline 6 ng/L (0-10) 02/05/23 22:06 NT-Pro-B Natriuret Pep 159 pg/mL (0-125) H 02/05/23 22:06 Total Protein 7.9 g/dL (6.6-8.7) 02/05/23 22:06 Albumin 4.8 g/dL (3.5-5.2) 02/05/23 22:06 Globulin 3.1 g/dL (1.3-4.6) 02/05/23 22:06 HCG, Qual Negative (Negative) 02/05/23 22:06 Discharge Plan Discharge Patient Disposition: Home Clinical Impression: Chest pain Condition: Stable Prescriptions: New alprazolam 0.5 mg tablet 0.5 mg PO BID PRN (Reason: anxiety) Qty: 7 0RF No Action gabapentin 300 mg Capsule 300 mg PO TID albuterol sulfate 90 mcg/actuation Hfa Aerosol Inhaler 2 puff INHALATION DIRECTED Robaxin-750 750 mg tablet 750 mg PO Q8H Qty: 20 0RF hydrocodone-acetaminophen 5-325 mg tablet 1 tab PO Q8H PRN (Reason: pain) Qty: 7 0RF albuterol sulfate 90 mcg/actuation HFA aerosol inhaler 2 inh inhalation Q6H PRN (Reason: shortness of breath or wheezing) Qty: 8.5 0RF 24Hour Allergy 10 mg tablet 10 mg PO DAILY PRN (Reason: allergy symptoms) Qty: 30 0RF Discharge Orders: Discharge ED (Routine); Ordered 02/05/23 Ordered By: Marco A Shaffer Referrals: Fiordaliza Valadez MD [Primary Care Provider] - Patient Instructions: Chest Pain (ED) Activity Restrictions/Additional Instructions: Return for worsening chest pain despite treatment, fever, worsening shortness of breath, worsening cough, any other concerning symptoms. See your doctor in follow-up next week Coding Level of Care Code ED Cross Cut Saw Operator for Jamel Lynch
[2023-02-05] MEDS: ketorolac 30 mg/mL INJ 15 MG IVP (23:45)
[2023-02-06 00:01] VITALS: BP 103/79; PULSE 89; RESP 18; O2SAT 99
== END 2023-02-06 00:07 | disposition home or self-care (01) ==
PROVIDERS: Nurse Practitioner Family; Emergency Provider Emergency Medicine; PCP Family Medicine
DX: R07.9 Chest pain, unspecified (principal); J45.909 Unspecified asthma, uncomplicated
CPT/HCPCS: 36415; 71045; 80053; 83880; 84484; 84703; 85025; 85378; 93005; 96374; 96375; 99285; J1885; J2060